=== PATIENT | female | born 1995 | race Caucasian/White ===

== ENCOUNTER 2018-08-10 09:16 | Outpatient (CLI) | payer OTHER ==
[~2018-08-10] VITALS: Ht 167.6 cm; Wt 66.4 kg
[2018-08-10] VITALS (7 sets, daily range): BP systolic 108–119; BP diastolic 56–66; PULSE 98–120; TEMP 98–98.7
[2018-08-10] MEDS ORDERED: PRENATAL PLUS (09:33)
[2018-08-10 10:55] LABS: COLLECTION METHOD CLEAN CATCH
--- NOTE | 2018-08-10 10:55 | NUR ---
1045 ASSISTED TO BR TO VOID. UA COLLECTED AND SENT TO LAB. IVF ALMOST COMPLETED. STATES NO CHANGE IN THE CONTRACTIONS SHE IS FEELING.
--- NOTE | 2018-08-10 10:58 | NUR ---
0935 SVE SHOWS EXTERNAL OS AT 1CM. 50 EFFEACED, SOFT AND POST. PRESENTING PART IS BALLOTABLE AND UNDETERMINED. 0945 IV STARTED IN LH WITH 18 INSYTE. LR INFUSING RAPIDLY FOR BOLUS PER ORDERS. PLANOF CARE DISCUSSED WITH PT AND SPOUSE. VERBLIZE UNDERSTNADING.
[2018-08-10 11:04] LABS: MUCOUS Present /lpf; PH 8; URINE APPEARANCE Hazy; URINE BACTERIA Rare /hpf; URINE BILIRUBIN Negative; URINE BLOOD 2+; URINE COLOR Straw; URINE GLUCOSE Negative; URINE KETONE Negative; URINE LEUKOCYTE ESTERASE 2+; URINE NITRATE Negative; URINE PROTEIN(semi-quant) Negative; URINE RBC 0-2 /hpf; URINE UROBILINOGEN Negative
[2018-08-10] MEDS ORDERED: MACROBID 1100 MG/CAP PO (13:45)
--- NOTE | 2018-08-10 14:20 | NUR ---
1130 TERBUTLINE 0.25 MG SUB Q IN LEFT UPPER ARM PER ORDERS. LR # 2 HUNG AND RUNNING AT 125CC/HOUR. 1200 STATES STILL FEELING CONTRACTIONS.
--- NOTE | 2018-08-10 14:28 | NUR ---
1300 RESTING, STATES NO CHANGE IN HOW CONTRACTIONS/CRAMPNG FEELS. AWAITLING US.
--- NOTE | 2018-08-10 14:44 | NUR ---
1305 US HERE TO DO RENAL SCAN. [address] GARCIA IN TO SEE PT AND SVE PERFORMED. PLAN OF CARE DISCUSSED. 1345 IVF INCREASED TO FINISH BAG PER VERBAL ORDER FROM DR. GARCIA.
--- NOTE | 2018-08-10 15:21 | NUR ---
1445 IV FLUIDS INFUSED AND CAPPED TO INT. [address] GARCIA TO SEE IF US RESULTS REC'D YET. 1515 PT INFORMED STILL WAITING FOR US RESULTS.
--- NOTE | 2018-08-10 16:23 | NUR ---
1600 DR GARCIA CALLS WITH REPORT FROM RADIOLOGIST. RESULTS TO PT. HOME CARE INSTRUCTIONS REIVEWED AND RX FOR MACROBID GIVEN. 1610 DISMISSED AMB TO SELF CARE AND DENIES FURTHER QUESTIONS.
== END 2018-08-10 16:10 | disposition home or self-care (01) ==
LOC: LDRO 09:16
PROVIDERS: Obstetrics & Gynecology
DX: O62.9 Abnormality of forces of labor, unspecified (principal); Z3A.28 28 weeks gestation of pregnancy
CPT/HCPCS: J3105; J7120

== ENCOUNTER 2018-08-15 20:20 | Outpatient (CLI) | payer OTHER ==
[~2018-08-15] VITALS: Ht 170.2 cm; Wt 66.4 kg
[~2018-08-15 20:20] MED LIST: MACROBID 1100 MG/CAP PO; PRENATAL PLUS
[2018-08-15 20:44] VITALS: BP 103/61; PULSE 109; TEMP 98.5
--- NOTE | 2018-08-15 20:45 | NUR ---
Pt arrived on the unit with complaints of contractions escorted by family. Pt reports contractions on and off for a couple of days worsening this afternoon. Pt denies any leaking of fluid, bleeding and reports normal movement. SVE by this RN 3. Spoke with Dr. Tong for an update on pt's status. Orders for labor assessment received.
--- NOTE | 2018-08-15 22:00 | NUR ---
SVE by this RN with no cervical change noted and pt reports a decrease in contractions/cramping she was feeling. Spoke with Dr. Tong for an update on pt's status. Orders for discharge home received. Plan of care reviewed with pt and at the bedside. Both verbalized an understanding, agree with the plan and state no questions or concerns at this time.
== END 2018-08-15 22:20 | disposition home or self-care (01) ==
LOC: LDRO 20:20
DX: O62.9 Abnormality of forces of labor, unspecified (principal); Z3A.29 29 weeks gestation of pregnancy

== ENCOUNTER 2018-08-22 23:30 | Outpatient (CLI) | payer OTHER ==
[~2018-08-22] VITALS: Ht 165.1 cm; Wt 67.7 kg
--- NOTE | 2018-08-22 23:40 | NUR ---
2340- PT PRESENTS TO LDR COMPLAINING OF CONTRACTIONS. AMBULATORY TO ROOM LR3, CHANGED INTO GOWN. 2346- EFM X2 APPLIED. PT DENIES LEAKING FLUID OR VAGINAL BLEEDING. SHE IS FEELING THE BABY MOVE. STARTED HAVING MORE PAINFUL CONTRACTIONS AN HOUR AGO. PLAN OF CARE DISCUSSED. 2350- SVE BY THIS NURSE 0-1/0/-3. DISCUSSED LABOR CHECK AND QUESTIONS ANSWERED. NURSE UNABLE TO PALPATE CONTRACTIONS OR LOTTERY SALES CLERK ON MONITOR. 0000- NURSING ADMISSION HISTORY AND ASSESSMENT COMPLETED. ORAL HYDRATION PROVIDED. 0030- PT STATES CONTRACTIONS ARE ABOUT THE SAME. NURSE STILL UNABLE TO PALPATE CONTRACTIONS OR LOTTERY SALES CLERK BETTER ON MONITOR. 0055- SVE BY THIS NURSE UNCHANGED. 0105- DR MARSHALL CALLED AND UPDATED ON PT HISTORY, COMPLAINT, SVE, STRIP INTERPRETATION. ORDERS RECEIVED FOR DISMISSAL TO HOME. 0107- PT OFF MONITORS FOR DISMISSAL. 0121- DISMISSAL INSTRUCTIONS GIVEN AND PT VERBALIZES UNDERSTANDING. PT DISMISSED TO HOME AMBULATORY ACCOMPANIED BY SPOUSE.
[2018-08-23 00:30] VITALS: BP 117/67; PULSE 105; TEMP 98
== END 2018-08-23 01:21 | disposition home or self-care (01) ==
LOC: LDRO 23:30
DX: O62.9 Abnormality of forces of labor, unspecified (principal); Z3A.30 30 weeks gestation of pregnancy

== ENCOUNTER 2018-10-07 18:14 | Outpatient (CLI) | payer OTHER ==
[~2018-10-07] VITALS: Ht 167.6 cm; Wt 73.2 kg
[2018-10-07 18:36] VITALS: BP 114/66; PULSE 114; TEMP 98.3
[2018-10-07 19:00] VITALS: BP 110/58; PULSE 109; TEMP 98.3
[2018-10-07 19:30] VITALS: BP 101/62; PULSE 104
[2018-10-07 20:04] VITALS: BP 106/68; PULSE 102
== END 2018-10-07 20:25 | disposition home or self-care (01) ==
LOC: LDRO 18:14 → LDR 18:20 → LDRO 20:25
DX: O62.9 Abnormality of forces of labor, unspecified (principal); O36.8130 Decreased fetal movements, third trimester, not applicable or unspecified; Z3A.37 37 weeks gestation of pregnancy

== ENCOUNTER 2018-10-26 06:37 | Inpatient (IN) | payer OTHER ==
[~2018-10-26] VITALS: Ht 167.6 cm; Wt 74.1 kg
[2018-10-26] VITALS (31 sets, daily range): BP systolic 90–1110; BP diastolic 53–86; PULSE 75–113; TEMP 97.8–98.9
--- NOTE | 2018-10-26 07:00 | NUR ---
0645- Patient arrives on unit for induciton of labor accompanied by spouse and mother. Patient orientated to room. 0700- Monitors in place, assesment completed. Consents signed. IV started in left forearm, patient felt lightheaded and faint after IV start and blood draw. Fan started and patient provided rest to recover from IV start. Will continue to monitor. 0708- decleration noted post patinet lighthead faint episode. Fluid bolus initiated. Will continue to monitor.
[2018-10-26 07:51] LABS: MEAN CELL VOLUME 78 fl (80.0-100.0); MEAN CORPUSCULAR HGB CONC 32 g/dl (33.0-37.0); MEAN PLATELET VOLUME 11.3 fl (7.4-10.4); PLATELET COUNT 173 K/mm3 (130-400); RED BLOOD COUNT 3.48 M/mm3 (4.10-5.30); REDCELL DISTRIBUTION WIDTH-CV 14.3 % (11.5-14.5)
[2018-10-26 07:57] LABS: HEMATOCRIT 27.2 % (37.0-47.0); HEMOGLOBIN 8.6 g/dl (12.5-16.0); MEAN CORPUSCULAR HEMOGLOBIN 25 pg (27.0-31.0)
[2018-10-26 08:42] LABS: BAND 3 % (0-10); LYMPHOCYTE 23 % (20.0-51.0); NEUTROPHILS 67 % (42.0-75.2); PLATELET ESTIMATE NORMAL (NORMAL)
[2018-10-26 08:43] LABS: HYPOCHROMIA 2+; MICROCYTOSIS 1+
--- NOTE | 2018-10-26 09:11 | NUR ---
patient request epidural. Alen Rush PEDIATRIC GENETIC COUNSELOR notified at this time of patient request. Will continue to monitor.
--- NOTE | 2018-10-26 09:30 | NUR ---
0930- Patient up to edge of bed for placement of epidural. Patient encouraged quesitons, answered appropriate. Intermittent tracing of FHT's with patient in position. Nurse remains at bedside will continue to moniotr 0932- Alen Rush CRNA into room for placement of epidural. Discussed procedure. Patient states understanding and denies further questions. Family at bedside. 0941- Test dose given. Patient tolerated well. 0946- Patient laid down in wedge left. Will continue to monitor.
--- NOTE | 2018-10-26 10:15 | NUR ---
Intermittent late subtle decelerations noted. Patient repositioned. called and notified and reviews FHR stripm instructed to continue with current plan of care. Will continue to moniotr.
--- NOTE | 2018-10-26 11:30 | NUR ---
Patient straight cath completed. Patient tolerated well, with SVE completed.
--- NOTE | 2018-10-26 11:45 | NUR ---
Patient sitting upright in bed with peanut ball in place. Patient comfortable, denies any needs. Will continue to monitor
--- NOTE | 2018-10-26 12:30 | NUR ---
1230- SVE completed patient noted complete. 1232- Dr. Wild notified of need for delivery, patient attempt one practice push with great movement of head. Dr. Wild on way for delivery 1235- Room prepped for deliverym, drawing press operator noitifed patient complete and need for standby, patient feeling "pushy". Nathan Solano notified for need for delivery to resume labor RN cares. Erinn Skinner RN to nursery position for delivery of infant. 1239- Dr. Wild in room for delivery, patient pushes with contractions 1242- Delivery of viable male . To care of Nursery RNPravin. Cord clamped by Dr. Wild cut by father of baby. Jazmine Solano RN resumes full cares of labor patient. 1246- Spontaneous delivery of placenta. Repair of second degree lac by . 1253- Methergine given IM by Jazmine Solano RN. in left antereolateral thigh. Patient resting comfortably in bed.
[2018-10-27 02:00] VITALS: BP 100/60; PULSE 66; TEMP 98.3
[2018-10-27 07:25] VITALS: BP 106/64; PULSE 94; TEMP 98.3
[2018-10-27] MEDS ORDERED: IBU600 MG PO (08:20)
--- NOTE | 2018-10-27 09:15 | NUR ---
Initial visit; Parents thanked [employer] for offering congratulations and God's blessings for the of their son. [employer] thanked family for choosing [facility].
[2018-10-27 12:00] VITALS: BP 111/59; PULSE 95; TEMP 98
== END 2018-10-27 15:45 | disposition home or self-care (01) | DRG 807 ==
LOC: OB 06:37 → LDR 06:37 → OB 15:13
PROVIDERS: ADMIT Obstetrics & Gynecology
PROC: 10E0XZZ Delivery of Products of Conception, External Approach (ICD-10-PCS; principal; 2018-10-26)
PROC: 10907ZC Drainage of Amniotic Fluid, Therapeutic from Products of Conception, Via Natural or Artificial Opening (ICD-10-PCS; 2018-10-26)
PROC: 3E033VJ Introduction of Other Hormone into Peripheral Vein, Percutaneous Approach (ICD-10-PCS; 2018-10-26)
DX: O60.23X1 Term delivery with preterm labor, third trimester, fetus 1 (principal); Z37.0 Single live birth; Z3A.39 39 weeks gestation of pregnancy; O69.81X0 Labor and delivery complicated by cord around neck, without compression, not applicable or unspecified; O70.0 First degree perineal laceration during delivery; O99.02 Anemia complicating childbirth; D64.9 Anemia, unspecified
CPT/HCPCS: J2210; J2590; J7120